=== PATIENT | female | born 1940 | race Caucasian/White ===

== ENCOUNTER 2023-10-20 15:32 | Emergency (ER) | payer MEDICARE ==
[2023-10-20] MEDS ORDERED: Dexamethasone 10 MG/ML VIAL ONE (16:37)
[2023-10-20] MEDS ORDERED: Ibuprofen 200 MG TAB ONE (16:38)
[2023-10-20] MEDS ORDERED: guaiFENesin/Codeine Phosphate 100 mg/10 mg 5 ml UD Cup ONE (16:41)
[2023-10-20 17:01] LABS: SARS-CoV-2 NAA Rapid Test Not Detected (NotDetected)
== END 2023-10-20 17:21 | disposition home or self-care (01) ==
LOC: CSHERS 15:32
DX: J06.9 Acute upper respiratory infection, unspecified (principal); K21.9 Gastro-esophageal reflux disease without esophagitis; I10 Essential (primary) hypertension; F17.210 Nicotine dependence, cigarettes, uncomplicated; Z79.899 Other long term (current) drug therapy
CPT/HCPCS: 0240U; 71045; J1100